=== PATIENT | male | born 1975 | race Caucasian/White ===

== ENCOUNTER 2020-03-31 11:58 | Inpatient (IN) | payer BC ==
[~2020-03-31] VITALS: Ht 177.8 cm; Wt 66.3 kg
[2020-03-31] MEDS ORDERED: FOLIC ACID 1 MG, THIAMINE HCL 100 MG, MVI, ADULT NO.1 10 ML in DEXTROSE 5% WATER 1,000 ML IV ONE ×4 (12:15)
[2020-03-31] MEDS ORDERED: CHLORDIAZEPOXIDE 25MG CAPSULE PO ONE (12:15)
[2020-03-31] MEDS ORDERED: MAGNESIUM 2 G PREMIX 50 ML IV ONE (12:15)
[2020-03-31] MEDS ORDERED: LORAZEPAM 2MG/ML CPJ IV ONE (12:15)
[2020-03-31] MEDS ORDERED: ONDANSETRON HCL 4MG/2ML INJ IV ONE (12:15)
[2020-03-31 12:36] LABS: HEMATOCRIT. 37.9 % (42.0-52.0); HEMOGLOBIN. 13.5 g/dL (14.0-18.0); MEAN CORPUSCULAR HEMOGLOBIN 33.6 pg (28.0-32.0); MEAN CORPUSCULAR VOLUME 94.7 fL (80.0-94.0); MEAN PLATELET VOLUME 8.1 fl (7.4-10.4); PLATELET 168 x1000/uL (130-400); RED BLOOD CELL COUNT 4.01 mill/uL (4.7-6.1); RED CELL DISTRIBUTION WIDTH 12.6 % (11.6-14.6)
[2020-03-31 12:43] LABS: CHLORIDE 64 mEq/L (98-107)
[2020-03-31 12:47] LABS: ETHANOL BLOOD < 10 mg/dL
[2020-03-31] MEDS ORDERED: SODIUM BICARBONATE 8.4% 1 MEQ/ML 50ML SYR IV ONE (13:00)
[2020-03-31] MEDS ORDERED: LEVETIRACETAM 1000MG/100ML 100 ML IV ONE (13:00)
[2020-03-31 13:22] LABS: PLATELET ESTIMATE NORMAL
[2020-03-31] MEDS ORDERED: ONDANSETRON HCL 4MG/2ML INJ IV PRN (13:45)
[2020-03-31] MEDS ORDERED: CLONIDINE 0.1MG TABLET PO PRN (13:45)
[2020-03-31] MEDS ORDERED: LORAZEPAM 2MG/ML CPJ IV PRN ×2 (13:45→17:15)
[2020-03-31 13:51] LABS: BG BASE EXCESS -11.3 mmol/L (-2.0-2.0); BG CARBOXYHEMOGLOBIN 0.1 % (0.5-1.5); BG DEOXYHEMOGLOBIN 2.7 % (0.0-5.0); BG HCO3 ACT 10.6 mmol/L (22.0-26.0); BG METHEMOGLOBIN 0.1 % (0.0-1.5); BG OXYGEN SATURATION 97.3 % (92.0-98.5); BG OXYHEMOGLOBIN 97.1 % (94.0-97.0); BG PH 7.412 (7.350-7.450); BG PO2 98.5 mmHg (75.0-100.0); BG SAMPLE SITE RIGHT RADIAL; BG TOTAL HEMOGLOBIN 13.4 g/dL (12.0-18.0); BG VENT MODE ROOM AIR
[2020-03-31] MEDS ORDERED: SODIUM CHLORIDE 3% 500 ML IV SCH (15:00)
[2020-03-31 15:46] LABS: CLARITY URINE CLEAR (CLEAR); COLOR URINE YELLOW (YELLOW); KETONES URINE 3+ (NEGATIVE); LEUKOCYTE ESTERASE URINE NEGATIVE (NEGATIVE); NITRITE URINE NEGATIVE (NEGATIVE); OCCULT BLOOD URINE 2+ (NEGATIVE); PH URINE 5.5 (4.5-8.0); PROTEIN URINE NEGATIVE (NEGATIVE); SPECIFIC GRAVITY URINE 1.007 (1.005-1.030); UROBILINOGEN URINE 0.2 E.U./dL (0.2-1.0)
[2020-03-31] MEDS ORDERED: SODIUM BICARBONATE 100 MEQ in SODIUM CHLORIDE 0.45% 1,000 ML IV SCH (16:00)
[2020-03-31 16:11] LABS: *AMPHETAMINES SCREEN URINE NEGATIVE (NEGATIVE)
[2020-03-31 16:12] LABS: *BARBITURATES SCREEN URINE NEGATIVE (NEGATIVE); *BENZODIAZEPINES SCREEN URINE NEGATIVE (NEGATIVE); *COCAINE SCREEN URINE NEGATIVE (NEGATIVE); METHADONE URINE SCREEN NEGATIVE (NEGATIVE); OPIATES URINE SCREEN NEGATIVE (NEGATIVE); PHENCYCLIDINE URINE SCREEN NEGATIVE (NEGATIVE)
[2020-03-31 16:13] LABS: CANNABINOID URINE SCREEN NEGATIVE (NEGATIVE)
[2020-03-31 18:14] LABS: PHOSPHORUS 5.3 mg/dL (2.5-4.9)
[2020-03-31 18:17] LABS: T4 FREE 1.17 ng/dL (0.76-1.46)
[2020-03-31 18:40] LABS: VITAMIN B12 SERUM >2000 pg/mL pg/mL (211-911)
[2020-03-31 19:01] LABS: CHLORIDE 74 mEq/L (98-107)
[2020-03-31] MEDS ORDERED: POTASSIUM CHLORIDE 20MEQ TABLET SR PO NR (20:15)
[2020-03-31] MEDS: KCL 20MEQ/100ML PREMIX 100 ML IV SCH ×2 (20:34→22:24)
[2020-03-31] MEDS ORDERED: SODIUM CHLORIDE 0.45% 1,000 ML IV SCH (21:00)
[2020-04-01] VITALS (11 sets, daily range): BP systolic 105–193; BP diastolic 57–79
[2020-04-01 06:34] LABS: HEMATOCRIT. 32.4 % (42.0-52.0); HEMOGLOBIN. 11.5 g/dL (14.0-18.0); MEAN CORPUSCULAR HEMOGLOBIN 33.9 pg (28.0-32.0); MEAN CORPUSCULAR VOLUME 95.5 fL (80.0-94.0); PLATELET 161 x1000/uL (130-400); RED BLOOD CELL COUNT 3.39 mill/uL (4.7-6.1); RED CELL DISTRIBUTION WIDTH 13.1 % (11.6-14.6)
[2020-04-01 06:37] LABS: CHLORIDE 90 mEq/L (98-107)
[2020-04-01] MEDS: CITRIC ACID/SODIUM CITRATE SOLN 30ML UDC PO SCH ×3 (08:49→18:07)
[2020-04-01] MEDS: MULTIVITAMINS,THER W-MINERALS TABLET PO SCH (08:49)
[2020-04-01] MEDS: THIAMINE HCL 100MG TABLET PO SCH (08:49)
[2020-04-01] MEDS ORDERED: POTASSIUM CHLORIDE 20MEQ/PACKET PO NR (09:45)
[2020-04-01] MEDS: DEXTROSE 5% WATER 1,000 ML IV SCH (10:28)
[2020-04-01] MEDS ORDERED: TRAMADOL 50MG TABLET PO PRN (12:00)
[2020-04-01] MEDS ORDERED: MAGNESIUM 1 G PREMIX 100 ML IV NR (13:30)
[2020-04-01 13:47] LABS: HEPATITIS B SURFACE ANTIGEN NEGATIVE
[2020-04-01 14:16] LABS: HEPATITIS A AB IGM NEGATIVE (NEGATIVE)
[2020-04-01 19:21] LABS: PLATELET ESTIMATE NORMAL
[2020-04-02] VITALS: BP 124/78
[2020-04-02] MEDS: DEXTROSE 5% WATER 1,000 ML IV SCH (02:40)
[2020-04-02 04:00] VITALS: BP 131/69
[2020-04-02 07:29] LABS: CHLORIDE 95 mEq/L (98-107)
[2020-04-02 08:00] VITALS: BP 128/83
[2020-04-02] MEDS: THIAMINE HCL 100MG TABLET PO SCH (08:46)
[2020-04-02] MEDS: MULTIVITAMINS,THER W-MINERALS TABLET PO SCH (08:46)
[2020-04-02] MEDS: CITRIC ACID/SODIUM CITRATE SOLN 30ML UDC PO SCH ×3 (08:46→17:35)
[2020-04-02 12:00] VITALS: BP 128/73
[2020-04-02] MEDS: POTASSIUM CHLORIDE 20MEQ TABLET SR PO SCH ×2 (12:42→17:35)
[2020-04-02] MEDS ORDERED: MAGNESIUM 2 G PREMIX 50 ML IV NR (14:00)
[2020-04-02 16:00] VITALS: BP 124/72
[2020-04-02 20:16] VITALS: BP 129/77
== END 2020-04-02 21:03 | disposition home or self-care (01) | DRG 917 ==
LOC: ER 12:20 → 5EST 12:58 → EDBEDREQ 13:03 → EDBEDREQSVC 13:03 → ENRESERV 14:37 → EDBEDREQSVC 15:17 → ENRESERV 22:02 → 6EST 04-02 13:05
PROVIDERS: ADMIT Hospitalist; ATTEND Hospitalist
DX: T51.0X1A Toxic effect of ethanol, accidental (unintentional), initial encounter (principal); E43 Unspecified severe protein-calorie malnutrition; E87.1 Hypo-osmolality and hyponatremia; E87.2 Acidosis; E87.8 Other disorders of electrolyte and fluid balance, not elsewhere classified; E87.5 Hyperkalemia; D64.9 Anemia, unspecified; I10 Essential (primary) hypertension; R63.1 Polydipsia; F10.10 Alcohol abuse, uncomplicated; Y90.9 Presence of alcohol in blood, level not specified; F17.200 Nicotine dependence, unspecified, uncomplicated; F14.10 Cocaine abuse, uncomplicated; R74.0 Nonspecific elevation of levels of transaminase and lactic acid dehydrogenase [LDH]; R56.9 Unspecified convulsions; E87.6 Hypokalemia; Y92.89 Other specified places as the place of occurrence of the external cause
CPT/HCPCS: 36415; 36600; 71045; 76700; 80048; 80053; 80061; 80305; 80307; 80320; 80329; 81003; 82375; 82533; 82607; 82805; 82962; 83735; 83880; 83930; 83935; 84100; 84295; 84439; 84443; 84484; 85025; 86705; 86709; 86803; 87340; 93005; 99291; J1953; J2060; J2405; J3411; J3475; J3480; J3490; J7070; G0480